=== PATIENT | female | born 2000 | race Two or more races ===

== ENCOUNTER 2023-04-07 17:22 | Emergency (ER) | payer MEDICAID, OTHER ==
[~2023-04-07] VITALS: Ht 157.5 cm; Wt 60.0 kg
[2023-04-07 17:52] VITALS: BP 107/61; PULSE 62; RESP 16; O2SAT 100
[2023-04-07] MEDS ORDERED: KETOROLAC TROMETH 30 MG/ML 1ML VIAL IM ONE (19:15)
== END 2023-04-07 22:13 | disposition home or self-care (01) ==
LOC: ER 17:22
DX: O03.9 Complete or unspecified spontaneous abortion without complication (principal); R10.2 Pelvic and perineal pain; Z3A.01 Less than 8 weeks gestation of pregnancy
CPT/HCPCS: J1885